=== PATIENT | female | born 1955 | race Caucasian/White ===

== ENCOUNTER 2016-09-16 08:20 | Day surgery (SDC) | payer BC ==
[2016-09-16 10:16] VITALS: TEMP 98
[2016-09-16 10:35] VITALS: RESP 18
[2016-09-16] MEDS ORDERED: LIDOCAINE HCL 2% (VISCOUS) 20 ML SOL ONE (10:47)
[2016-09-16 10:51] VITALS: BP 141/86; PULSE 61; O2SAT 95
== END 2016-09-16 11:10 | disposition home or self-care (01) ==
LOC: SURG 08:20
PROVIDERS: ATTEND Internal Medicine Gastroenterology
DX: Z12.11 Encounter for screening for malignant neoplasm of colon (principal); Z80.0 Family history of malignant neoplasm of digestive organs; Z86.010 Personal history of colon polyps; K64.8 Other hemorrhoids